=== PATIENT | female | born 1990 | race Two or more races ===

== ENCOUNTER 2022-12-05 15:16 | Emergency (ER) | payer MEDICARE, OTHER ==
[~2022-12-05] VITALS: Ht 154.9 cm; Wt 63.6 kg
[2022-12-05 15:28] VITALS: BP 106/79
[2022-12-05] MEDS ORDERED: IBUPROFEN 600 MG TABLET PO ONE (17:00)
[2022-12-05 17:19] LABS: COVID AG,FIA SOURCE NASOPHARYNGEAL
[2022-12-05 17:44] LABS: INFLUENZA TYPE A NEGATIVE FOR TYPE A (NEGATIVE); INFLUENZA TYPE B NEGATIVE FOR TYPE B (NEGATIVE)
== END 2022-12-05 18:05 | disposition home or self-care (01) ==
LOC: EMS 15:25
DX: B34.9 Viral infection, unspecified (principal); Z88.8 Allergy status to other drugs, medicaments and biological substances; Z20.822 Contact with and (suspected) exposure to COVID-19
CPT/HCPCS: 87804; 99283